=== PATIENT | male | born 1980 | race Caucasian/White ===

== ENCOUNTER 2024-12-28 15:47 | Inpatient (IN) | payer BC, SELFPAY ==
[2024-12-28] VITALS (9 sets, daily range): BP systolic 91–122; BP diastolic 57–74; BMI 29.7; BMI 30.3
[2024-12-28 11:43] LABS: Hematocrit 48.5 % (39.0-52.0); Hemoglobin 16.8 g/dL (13.0-18.0); Mean Corp Hgb Conc. 34.6 g/dL (33.0-37.0); Mean Corpuscular Volume 89.2 fL (80.0-94.0); Platelet Count 181 10^3/uL (130-400); Red Cell Dist. Width 12.7 % (11.5-14.5)
[2024-12-28 11:44] LABS: APTT 28.8 Sec (23.4-35.0); INR 0.91; PT 12.8 Sec (11.4-14.6)
[2024-12-28 11:54] LABS: ALT (SGPT) 26 U/L (0-50); AST (SGOT) 24 U/L (17-59); Albumin 4.8 g/dl (3.5-5.0); Alkaline Phosphatase 33 U/L (38-126); Blood Urea Nitrogen 20 mg/dl (9-20); Calcium 9.8 mg/dl (8.4-10.2); Carbon Dioxide 25 mmol/L (22-30); Chloride 106 mmol/L (98-107); Glucose 114 mg/dl (70-99); Potassium 4.0 mmol/L (3.5-5.1); Sodium 137 mmol/L (135-145); Total Protein 7.2 g/dl (6.3-8.2); eGFR > 60.00
[2024-12-28 11:58] LABS: Nucleated Red Blood Cells % 0 % (-)
[2024-12-28] MEDS: OMNIPAQUE 50 ML PO (12:09)
[2024-12-28] MEDS: ZOSYN 100 IV (12:19)
[2024-12-28] MEDS: TORADOL 15 MG IV (12:20)
--- NOTE | 2024-12-28 12:30 | EDRN ---
called pharmacy to verify Mandieo
--- NOTE | 2024-12-28 12:32 | ED.GENMED ---
History of Present Illness
General
Chief Complaint: Fever
Time Seen by Provider: 12/28/24 11:48
Nursing documentation reviewed up to this point in time: agreed with
History of Present Illness
History of Present Illness:
44-year-old male presents to the ER for evaluation of abrupt onset rigors and bodyaches at 1:00 this morning. Patient states that he had been feeling otherwise well. He did travel to [place] with his family recently but had no specific sick
contacts. No recent tick exposures. No recent antibiotic usage. Patient states that he felt nauseated and vomited once. He reports right sided abdominal pain and severe pain in his right groin. He had been seen at urgent care and was referred
immediately to the ER for further evaluation. I was able to speak to urgent care attending, Dr. Gibson, to receive report with regards for concern given overall patient appearance and hypotension. On arrival to the ER he notes a rash to his right
lower extremity. He states that yesterday he was easily able to play soccer with his son without any reported injury or trauma. He reports severe pain with movement diffusely throughout his body. He did not take any medications for his symptoms
prior to arrival
Phy Exam
Physical Exam
Physical Exam:
Patient is awake, alert, appears uncomfortable but in no acute distress, mucous membranes tacky, heart regular rate and rhythm without murmurs or ectopy, lungs are clear to auscultation without wheezes rales or rhonchi, abdomen is diffusely tender
with rebound and guarding along the right lower quadrant, exquisite pain on palpation right groin, with palpable lymphadenopathy, there is flame shaped blanching erythema present anterior right lower leg, moderate tenderness on palpation along
medial right lower leg, 2+ DP pulses present symmetric bilateral lower extremities with brisk cap refill to the toes, GCS is 15
Course
Orders/Labs/Results
Orders:
Orders
12/28/24 11:20
Complete Blood Count/With Diff Urgent
Comprehensive Metabolic Panel Urgent
Creatine Phosphokinase Urgent
Comment: ADD
Lactic Acid Urgent
Comment: ORDERED [place] [id number]
PTT Urgent
Prothrombin Time Urgent
12/28/24 11:48
CT Abd/pel W Iv And Oral Contr Urgent
Comment:
Reason For Exam: rlq pain r/o appy
Iohexol [Omnipaque] See Protocol PO NOW STA
12/28/24 11:54
0.9% Sodium Chloride 500 ml [Nss] 500 ml IV BOLUS
12/28/24 12:00
CT Lower Ext W/iv Cont Rt Urgent
Comment:
Reason For Exam: muscle pain, fever
12/28/24 12:01
Piperacillin/Tazo 4.5 Gram [Zosyn] 4.5 gram in 100 ml IV NOW
12/28/24 12:02
Vancomycin [Vancocin] 2,000 mg 0.9% Sodium Chloride 500 ml [Nss] 500 ml IV NOW
12/28/24 12:03
Ketorolac [Toradol] 15 mg IV NOW STA
12/28/24 12:54
Add On- LAB Urgent
Tests Added?: Total CK
12/28/24 13:18
HYDROmorphone [Dilaudid] 1 mg IV NOW STA
12/28/24 14:21
Consult Surgery [SURGICAL CONSULT] Urgent
Consulting Provider: Fercho Cueva
Was physician already notified: Yes
Reason for consult: severe pain, cellulitis
12/28/24 15:00
Blood Culture Q30M
TONY Source: Blood/Venous
Specimen Description:
12/28/24 15:01
Ehrlichia/Anaplasma by PCR [S] Urgent
Lyme Progressive Urgent
Babesia Smear [Blood Parasites] Urgent
TONY Source: Blood/Venous
Specimen Description:
12/28/24 15:04
Lumbar W/O & With Contrast MR [MR Lumbar W/o & With Contrast] Routine
Comment:
Reason For Exam: sepsis thoracic lumbar back pain
OK for patient to be off Cardiac Monitoring for MRI: Yes
Recent pill cam endoscopy?: No
Pacemaker/Defibrillator?: No
Thoracic Spine W/O & With [MR Thoracic Spine W/o & With] Routine
Comment:
Reason For Exam: sepsis thoracic lumbar back pain
OK for patient to be off Cardiac Monitoring for MRI: Yes
Recent pill cam endoscopy?: No
Pacemaker/Defibrillator?: No
12/28/24 15:06
CefTRIAXone [Rocephin] 1,000 mg IV NOW STA
12/28/24 15:30
Blood Culture Q30M
TONY Source: Blood/Venous
Specimen Description:
Abnormal Lab Results
12/28/24
11:20
WBC 23.0 H 10^3/uL
(4.8-10.8)
Abs Immat Gran (auto) 0.2 H 10^3/uL
(0-0.05)
Absolute Neuts (auto) 20.8 H 10^3/uL
(1.4-6.5)
Absolute Lymphs (auto) 0.6 L 10^3/uL
(1.2-3.4)
Absolute Monos (auto) 1.4 H 10^3/uL
(0.1-0.6)
Immature Gran % 0.9 H %
(0-0.5)
Neutrophils % 90.2 H %
(42.2-75.2)
Lymphocytes % 2.7 L %
(20.5-51.1)
Glucose 114 H mg/dl
(70-99)
Alkaline Phosphatase 33 L U/L
(38-126)
12/28/24 11:20
12/28/24 11:20
White blood count elevated at 23,000 with left shift, kidney function preserved. Lactate reassuring
Vital Signs
Initial and Last Documented VS:
Initial Vital Signs
Temp Pulse Resp BP Pulse Ox
98.3 F 75 16 91/58 95
12/28/24 11:04 12/28/24 11:04 12/28/24 11:04 12/28/24 11:04 12/28/24 11:04
Last Documented Vital Signs
Temp Pulse Resp BP Pulse Ox
98.3 F 74 14 102/64 93
12/28/24 11:04 12/28/24 14:15 12/28/24 14:15 12/28/24 14:00 12/28/24 14:15
MDM/Problems Addressed
Differential Diagnosis Includes:
Differential diagnosis to consider but not limited to necrotizing fasciitis, ruptured appendicitis, bacteremia, sepsis along with other etiologies considered
Comment
Comment:
After my examination of the patient, I reached out to on-call surgeon, Dr. Simon, to discuss my concern for necrotizing fasciitis given extreme pain on palpation of the right lower extremity and right groin. He will see patient in consultation
pending imaging as planned.
*Radiology
Radiology exam reviewed: preliminary read by ED provider (I independently viewed and interpreted CT of the abdomen and right lower extremity showing subcutaneous stranding in the right groin, I do not see overt evidence for bowel rupture or
myositis. Awaiting formal radiology interpretation) and radiology read reviewed
*Pulse Oximetry
SaO2: 95
Oxygen Mode of Delivery: Room air
Patient hypoxic: no
*Critical Care Note
Total Time (30-74mins, 75-104mins- exclusive of procedures): Not Applicable
Update Note
Update Note:
Patient with minimal change in pain with Toradol administration. IV Dilaudid ordered. 2 L IV fluids also ordered. Blood pressure stable.
update-patient resting comfortably after Dilaudid. I reviewed CT with on-call surgeon, would feel patient could be admitted to hospitalist and they will see in consultation. I reviewed full patient presentation with hospitalist who accepts patient
for admission for further treatment of severe pain out of proportion associated with cellulitis
ED Attending Note
-
Portions of this chart may have been created with voice recognition software.� Occasional wrong word or��sound alike� substitutions may have occurred due to the inherent limitations of voice recognition software.
Discharge Plan
Departure
Patient Disposition: Admit
Date of Disposition: 12/28/24
Time of Disposition: 14:25
Presentation/result/management discussed w/ accepting MD/DO: Hospitalist
Discharge Problem:
Cellulitis, Severe inguinal pain
Prescriptions:
No Action
No Current Medications
0
Referrals:
Ashish Franklin DO [Family Provider, Family Practice]
Interventions
Interventions:
*Risk Screen - Suicide Last Done: 12/28/24 12:01
*General Assessment Last Done: 12/28/24 12:01
*Neglect/Abuse Screening Last Done: 12/28/24 12:01
*ED- Fall Risk Assessment Last Done: 12/28/24 12:01
*ED COVID-19 Vaccine History Last Done: 12/28/24 12:01
ED- Neurological Assessment Last Done: 12/28/24 12:01
ED-Skin Assessment Last Done: 12/28/24 12:01
Discharge Date and Time
Print Language: BELGIAN
[2024-12-28] MEDS: NSS 500 IV (13:16)
[2024-12-28] MEDS: VANCOCIN 540 MG IV (13:16)
[2024-12-28] MEDS: DILAUDID 1 MG IV (13:27)
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
--- NOTE | 2024-12-28 15:04 | CON.GS ---
Consultation
-
Date/Time Consultation Performed: 12/24/2024 1420
Requesting Provider: Hammad
Performing Provider: Maxim
Reason for Consultation: Possible soft tissue infection
Medical History
-
Chief Complaint: Fevers, rigors and body ache
History of Present Illness:
Patient is a 44-year-old male who is in his usual baseline state of health until this past evening. His is at bedside and reports that she woke in the middle the night with her having rigors in bed next to her sleeping. He
subsequently woke up with a fever and chills and noted diffuse bodyaches. As time proceeded into the morning he began to have increasing discomfort in the right inguinal area and slightly more in the right calf region than other extremities. He
also complains of lower back pain. He was subsequently referred to the emergency department from urgent care for further evaluation.
Patient is not aware of any recent sick contacts. He recently traveled to [place]. He is not aware of any tick or other outdoor exposures. No similar episodes like this in the past.
Past Medical History
Past Medical History: None
Past Surgical History: None
Social History
Personal:
Living: With Family
Family History
Family History: Reviewed & Not Pertinent
Allergies / Home Medications
Allergy/AdvReac Type Severity Reaction Status Date / Time
No Known Allergies Allergy Verified 12/28/24 11:03
�Medication �Instructions �Recorded �Confirmed �Type
No Meds [No Current Medications] 12/28/24 12/28/24 History
Review of Systems
-
History Source: Patient and Family
A 10 point review of systems was completed, and was negative except as per HPI.
Physical Exam
Vital Signs
Temp Pulse Resp BP Pulse Ox
98.3 F 74 14 102/64 93
12/28/24 11:04 12/28/24 14:15 12/28/24 14:15 12/28/24 14:00 12/28/24 14:15
12/27/24 12/28/24 12/29/24
06:59 06:59 06:59
Actual Weight 102.1 kg
Body Mass Index (BMI) 29.7
Lab Results
12/28/24 11:20
12/28/24 11:20
WBC 23.0 10^3/uL (4.8-10.8) H 12/28/24 11:20
Hgb 16.8 g/dL (13.0-18.0) 12/28/24 11:20
Hct 48.5 % (39.0-52.0) 12/28/24 11:20
Plt Count 181 10^3/uL (130-400) 12/28/24 11:20
Abs Immat Gran (auto) 0.2 10^3/uL (0-0.05) H 12/28/24 11:20
Neutrophils % 90.2 % (42.2-75.2) H 12/28/24 11:20
Physical Exam
General: Well Developed, Well Nourished, No Apparent Distress (But acutely ill) and Comfortable
HEENT: Normocephalic, Anicteric and Moist Mucous Membranes
Respiratory: Non Labored Respirations
Cardiac: Regular Rhythm
GI: Soft, Non Tender and Non Distended
Skin: Other (Faint erythematous rash along the right pretibial area of the lower extremity.)
Neuro: AO x 3 and Nonfocal/Grossly Intact
Hematologic/Lymphatic: Lymphadenopathy (Right groin without overlying erythema)
Data Reviewed
-
CT Scan: Image Personally Visualized and interpreted, Report Reviewed by me, Discussed with Patient and Discussed with Family
Assessment / Plan
-
Assessment/plan: 44-year-old male presenting with fever, rigors, diffuse bodyaches, lower back pain, headache and a faint rash along the right pretibial area as well as right groin lymphadenopathy.
Emergency department consultation requested out of concern for possible soft tissue infection. Based on physical examination and CT imaging there does not appear to be any deep/underlying soft tissue infection such as myositis, necrotizing
fasciitis or undrained abscess. Very faint rash like erythema along the right anterior tibial region which does not appear to be too cellulitic either.
There does not appear to be any infectious soft tissue process to warrant surgical intervention. Suspect more generalized infectious process occurring.
Hospitalist team currently evaluating patient.
Signing off.
Please call if I can be of further assistance with the patient's care.
--- NOTE | 2024-12-28 15:14 | W.PN.UPDATE ---
Update Note
Progress Note Update
This is an addendum to H&P written by Krysten Waddell on 12/24/2024. �Patient seen and examined independently with CHARGE MANAGER.
44-year-old male without medical history presenting with 1 day of severe body aches including lower right back and right groin with radiation to the legs, chills, retro-orbital headache behind the right eye with some light sensitivity and nausea.
Also discomfort of the right lower leg with red discoloration.
Labs show leukocytosis 23.
Patient has erythematous discoloration of the right lower extremity without evidence of acute cellulitis.
CT scan of the right lower extremity and CT abdomen pelvis shows right groin enhancing lymph nodes.
Concern for Lyme's disease versus other tickborne illness although right lower extremity cellulitis could cause enhancing lymph nodes in the right groin.. Also considering differential such as meningitis versus lumbar spinal abscess.
Check Lyme screen, ehrlichiosis antibody, Babesia smear, blood cultures. Check MRI lumbar spine. Empiric vancomycin/ceftriaxone.
Alcohol withdrawal protocol for excessive alcohol use.
Was seen by surgery for concern for necrotizing fasciitis although presentation not consistent with such at all.
[2024-12-28] MEDS: STERILE WATER FOR INJECTION 10 ML IV (16:06)
[2024-12-28] MEDS: ROCEPHIN 1000 MG IV (16:06)
[2024-12-28] MEDS: TYLENOL 650 MG PO (17:12)
--- NOTE | 2024-12-28 19:05 | PHA.VAN.IN ---
Assessment
- Assessment
Renal Function: Unknown baseline
Concomitant Antimicrobials: ROCEPHIN
- Previous Dosing Experience
Previous Regimen: NONE
AUC Dosing Plan
- Dosing Variables
Dosing Weight (kg): 104
Dosing CrCl (ml/min): 100
Vd coefficient (L/kg): 0.7
- Empiric Dosing
Initial / Loading Dose: 2GM
Maintenance Regimen: 1500MG IV Q12H
Estimated AUC (mcg*h/mL): 502
Estimated Peak (mcg*h/mL): 31.7
Estimated Trough (mcg/ml): 12.7
Estimated Half Life (H): 7.9
Pharmacokinetics Vancomycin I
- -
Patient Age: 44
Patient Sex: Male
Vancomycin Day #: 1
Indication: Other (THORACIC/LUMBAR ABSCESS)
Requesting Provider: SHAUNA
Height / Weight:
Height 6 ft 1 in
Actual Weight 103.986 kg
- Vital Signs / Lab Results
Temp Pulse Resp BP Pulse Ox
100.5 F H 98 18 114/74 97
12/28/24 18:40 12/28/24 18:40 12/28/24 18:40 12/28/24 18:40 12/28/24 18:40
Lab Results - Hematology
12/28/24
11:20
WBC 23.0 H
Lab Results - Chemistry
12/28/24
11:20
BUN 20
Creatinine 1.1
Albumin 4.8
12/28/24
11:20
Lactic Acid 0.9
[2024-12-28] MEDS: DILAUDID 0.5 MG IV (19:48)
[2024-12-28 20:35] LABS: Urine Character Clear (Clear)
[2024-12-28] MEDS: THIAMINE INJECTION 200 MG IV (20:38)
[2024-12-28] MEDS: NSS 1000 IV (20:39)
[2024-12-28] MEDS: HEPARIN 5000 UNITS SC (20:39)
[2024-12-28 20:42] LABS: INR 1.14; PT 15.1 Sec (11.4-14.6)
[2024-12-28 20:43] LABS: APTT 34.8 Sec (23.4-35.0)
[2024-12-28 20:51] LABS: GGTP 29 U/L (15-73); Magnesium 1.7 mg/dl (1.6-2.3)
[2024-12-28 20:53] LABS: Urine White Cell 0-2 /HPF (0-5)
[2024-12-29] MEDS: TYLENOL 650 MG PO ×3 (02:40→22:51)
[2024-12-29 03:00] VITALS: BP 114/65
[2024-12-29] MEDS: VANCOCIN 530 MG IV (06:02)
[2024-12-29 06:42] LABS: Hematocrit 40.5 % (39.0-52.0); Hemoglobin 13.7 g/dL (13.0-18.0); Mean Corp Hgb Conc. 33.8 g/dL (33.0-37.0); Mean Corpuscular Volume 91.8 fL (80.0-94.0); Nucleated Red Blood Cells % 0 % (-); Platelet Count 146 10^3/uL (130-400); Red Cell Dist. Width 12.7 % (11.5-14.5)
[2024-12-29 06:55] LABS: ALT (SGPT) 24 U/L (0-50); AST (SGOT) 25 U/L (17-59); Albumin 3.2 g/dl (3.5-5.0); Alkaline Phosphatase 27 U/L (38-126); Blood Urea Nitrogen 18 mg/dl (9-20); Calcium 8.5 mg/dl (8.4-10.2); Carbon Dioxide 24 mmol/L (22-30); Chloride 108 mmol/L (98-107); Estimated Creatinine Clearance 121 ml/min; Glucose 97 mg/dl (70-99); Magnesium 1.9 mg/dl (1.6-2.3); Potassium 4.3 mmol/L (3.5-5.1); Sodium 134 mmol/L (135-145); Total Protein 5.3 g/dl (6.3-8.2); eGFR > 60.00
[2024-12-29 07:30] VITALS: BP 92/65
[2024-12-29] MEDS: FOLVITE 1 MG PO (07:52)
[2024-12-29] MEDS: HEPARIN 5000 UNITS SC ×2 (07:52→22:50)
[2024-12-29] MEDS: THIAMINE INJECTION 200 MG IV ×2 (07:52→22:49)
--- NOTE | 2024-12-29 08:35 | PHA.VAN.FU ---
Vancomycin Assessment / Plan
- Assessment
Renal Function: SCR Decreasing
WBC's are: Trending Down
In the past 24 hrs, patient has been: Febrile
Concomitant Antimicrobials: ceftriaxone
- Dosing Plan
Adjust Regimen to: Vanc 1750mg Q12H starting at 1800
New Regimen Predicts: AUC (507), Peak (33.6), Trough (11.8)
- Monitoring Plan
No level(s) ordered at this time: consider levels in next few days
MRSA Screen: Ordered per protocol
- Follow Up
Pharmacy will continue to follow.
Vancomycin Follow UP
- -
Patient Age: 44
Patient Sex: Male
Vancomycin Day #: 2
Indication: Other
Requesting Provider: Jhony Waddell
Pertinent Antimicrobial Allergies:
NKDA
Height / Weight:
Height 6 ft 1 in
Actual Weight 103.986 kg
Pertinent Past Medical History: BMI ~30
- Vital Signs / Lab Results
Temp Pulse Resp BP Pulse Ox
100.3 F 80 16 92/65 96
12/29/24 07:30 12/29/24 07:30 12/29/24 07:30 12/29/24 07:30 12/29/24 07:30
Lab Results - Hematology
12/28/24 12/29/24
11:20 06:11
WBC 23.0 H 17.4 H
Lab Results - Chemistry
12/28/24 12/29/24
11:20 06:11
BUN 20 18
Creatinine 1.1 1.0
Estimated Creat Clear 121
Albumin 4.8 3.2 L D
12/28/24
11:20
Lactic Acid 0.9
Lab Results - Urine
12/28/24
20:24
Urine Nitrite Negative
Ur Leukocyte Esterase 1+ A
Urine WBC 0-2
Ur Squamous Epith Cells 6-10
Urine Bacteria Few A
Microbiology Results
12/28/24 20:21 Blood Parasites Smear - Preliminary
Blood/Venous
--- NOTE | 2024-12-29 09:17 | W.PN.HOSP.TC ---
Today's Communication/Plan
-
see plan
Assessment / Plan
Assessment / Plan
Gen: NAD, AAOx3.
Eyes: EOMI, PERRLA, no scleral icterus.
Neck: supple.
CV: RRR, +S1/S2, no m/r/g.
Resp: CTAB, no rales, wheezes, or rhonchi.
Abd: +BS, soft, NT, ND
Skin: No rashes.
MSK: Lumbar spine without bony deformity or tenderness to palpation, Lumbar paraspinal muscles are tender to palpation.
Neuro: CN 2-12 intact, non-focal.
Psych: Normal mood and affect.
CT A/P: Several subcentimeter enhancing right groin lymph nodes with surrounding stranding suggesting recent infection, procedure or malignancy in or near this region. Clinical and laboratory correlation recommended.. Too small for PET imaging.
Mild prostate hypertrophy. Bilateral simple renal cysts.
CT RLE: Subcentimeter right groin enhancing lymph nodes with associated inflammation suggesting recent procedure, infection or malignancy. Clinical and laboratory correlation recommended.
SIRS:
-with back pain concern for thoracic/lumbar abscess
-leukocytosis improving
-IV Vanco/Zosyn given in ER
-cont Rocephin/Vanco
-follow BCxs, parasite smear, tickborne illness serologies (Lyme, ehrlichiosis, Anaplasma)
-check MRI T/L spine
-c/s ID
Other problems:
Alcohol abuse disorder: MSAS protocol (thiamine/folate/Ativan PRN)
Tobacco abuse disorder: Encourage smoking cessation
Obesity due to excess calories
Pt's updated at bedside.
FULL/heparin
Anticipated Discharge: 24 - 48 hours
Subjective/Interval History
-
Date of Service: December 29, 2024
No new complaints.
Objective Data
-
Labs:
Laboratory Results
12/29/24
06:11
WBC 17.4 H
Hgb 13.7
Hct 40.5
Plt Count 146
Sodium 134 L
Potassium 4.3
Chloride 108 H
Carbon Dioxide 24
BUN 18
Creatinine 1.0
Glucose 97
Calcium 8.5
Total Bilirubin 0.6
AST 25
ALT 24
Alkaline Phosphatase 27 L
Vital Signs:
Vital Signs
Temp Pulse Resp BP Pulse Ox
100.3 F 80 16 92/65 96
12/29/24 07:30 12/29/24 07:30 12/29/24 07:30 12/29/24 07:30 12/29/24 07:30
I&O
12/28/24 12/29/24 12/30/24
06:59 06:59 06:59
Intake Total 1560 / 1560
Balance 1560 / 1560
[2024-12-29] MEDS: NSS 1000 IV ×3 (10:06→22:55)
[2024-12-29 11:50] VITALS: BP 105/69
--- NOTE | 2024-12-29 12:45 | CM ---
Patient seen at bedside with
IA completed
CM consult completed - substance abuse - declines BCARES
Lives with in a 2 story home, 2 steps to enter, flight stairs bed/bathroom
PLOF: Independent
Denies DME
Denies VN/Rehab
Denies insecurities
PCP: Ashish Franklin
Pharmacy: [facility], [place]
PLAN: Home, no needs anticipated when stable
[2024-12-29 15:30] VITALS: BP 113/69
--- NOTE | 2024-12-29 16:21 | CON.ID ---
Consultation
-
Date/Time Consultation Requested: 12/29/2024 0919
Date/Time Consultation Performed: 12/29/2024 1543
Requesting Provider: Dr. Katz
Performing Provider: Dr. Jones
Reason for Consultation: Leukocytosis
Chief Complaint / Past History
History of Present Illness
Eddie Huggins is a 44-year-old man being evaluated at the request of Dr. Katz in regards to leukocytosis and fevers. History is obtained from chart review, along with patient interview.
The patient has no significant past medical history, and was in his usual state of health until 2 days ago when he recalls waking up approximate 1 AM with rigors and fever to 102. He recalls that he had the shakes for the next 5 to 6 hours.
Additionally had a headache and later, an achy back. He does admit to general myalgias the next morning. He went to a local urgent care center, and he was sent to the ER. He presented to the ER yesterday around 11 AM. Workup in the ER revealed
leukocytosis. The patient was started on empiric antibiotics. Later in the day he continued to have spiking temperatures.
In the ER he recalls seeing his right leg had developed erythema, and he had tenderness along his medial thigh, and tenderness in the groin area with some swelling.
At this point in time he reports feeling somewhat improved, although he still has significant tenderness in the distal right leg.
He denies any tick exposure. He has been bitten by mosquitoes. 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 He does not have a lot of outdoor exposure. He has 1 pet hamster.
No recent travel.
Past History
Past Medical History: None
Past Surgical History: Orthopedic (Right ankle surgery)
Allergy History:
No Known Allergies Allergy (Verified 12/28/24 11:03)
Medications Reviewed: Yes
Current Antibiotics:
Ceftriaxone
Vancomycin
Social History
Tobacco: Smoker (Social)
Alcohol: Occasional
Drug: None
Personal:
Living: With Family
Employment: Employed
Family History
Family History: Not Pertinent
Review of Systems
Vital Signs
Temp Pulse Resp BP Pulse Ox
98.6 F 73 16 113/69 99
12/29/24 15:30 12/29/24 15:30 12/29/24 15:30 12/29/24 15:30 12/29/24 15:30
Physical Exam
Physical Exam
Constitutional: No Acute Distress, Comfortable and Non-toxic
Eyes: No Conjunctival Hemorrhage and Sclera Anicteric
Oral: No Thrush and No Ulcers
Cardiovascular: Regular Rate and S1/S2; Negative S3/S4
Pulmonary: Clear; Negative Wheezes, Rales or Rhonchi
Gastrointestinal: Soft, Non Tender and Non Distended
Extremities: Edema (Right lower extremity distally) and Erythema (Right lower extremity distally, including ankle area and distal tibia/calf area)
Musculoskeletal: Negative Joint Swelling or Joint Effusion
Skin: Warm and Dry
Wound: None
Neurological: Awake, Alert and Oriented
Psychological: Calm
.
Lab / Diagnostic Study Results
12/29/24 06:11
12/29/24 06:11
Abs Immat Gran (auto) 0.1 10^3/uL (0-0.05) H 12/29/24 06:11
Absolute Neuts (auto) 15.2 10^3/uL (1.4-6.5) H 12/29/24 06:11
Absolute Lymphs (auto) 1.5 10^3/uL (1.2-3.4) 12/29/24 06:11
Absolute Monos (auto) 0.5 10^3/uL (0.1-0.6) 12/29/24 06:11
Absolute Basos (auto) 0.0 10^3/uL (0-0.2) 12/29/24 06:11
Immature Gran % 0.5 % (0-0.5) 12/29/24 06:11
Neutrophils % 87.5 % (42.2-75.2) H 12/29/24 06:11
Lymphocytes % 8.6 % (20.5-51.1) L 12/29/24 06:11
Monocytes % 3.0 % (1.7-9.3) 12/29/24 06:11
Eosinophils % 0.2 % (0-6) 12/29/24 06:11
Basophils % 0.2 % (0-2) 12/29/24 06:11
PT 15.1 Sec (11.4-14.6) H 12/28/24 20:21
INR 1.14 12/28/24 20:21
Lactic Acid 0.9 mmol/L (0.7-2.0) 12/28/24 11:20
Urine WBC 0-2 /HPF (0-5) 12/28/24 20:24
Ur Squamous Epith Cells 6-10 /LPF (Few) 12/28/24 20:24
Microbiology Results
Micro:
12/28/24 20:21 Blood Parasites Smear - Final
Blood/Venous
12/29/24 12:41 MRSA Screen - Pending
Nose
12/28/24 21:16 Blood Culture - Pending
Blood/Venous
12/28/24 20:21 Blood Culture - Pending
Blood/Venous
Imaging:
12/28/2024 CT lower extremity with IV contrast: subcentimeter right groin enhancing lymph nodes with associated inflammation suggesting recent procedure, infection or malignancy. No abnormal masses or fluid collections noted. Vasculature is grossly
unremarkable. Please see full dictation for additional detail.
04/30/2025 CT abdomen/pelvis with contrast: several subcentimeter enhancing right groin lymph nodes with surrounding stranding suggesting recent infection, procedure malignancy. Clinical correlation recommended. Mild prostate hypertrophy.
Bilateral simple renal cysts needed. Please see full dictation for additional detail.
Assessment / Plan
Right lower extremity cellulitis; suspect either Staphylococcus or Streptococcus
Lymphangitis
Suspected reactive right inguinal lymph nodes.
Leukocytosis
Fevers
Recommendations:
Continue with vancomycin.
Transition ceftriaxone to cefazolin 2 gm IV q.8 hours.
Monitor white count and temperature curve.
Follow pending cultures
Further recommendations as additional data is returned.
[2024-12-29] MEDS: VANCOCIN 535 MG IV (17:43)
[2024-12-29] MEDS: ANCEF 10 IV (17:51)
[2024-12-29 19:10] VITALS: BP 136/84
[2024-12-29] MEDS: FLUSH (NSS) 2 FLUSH IV (22:51)
[2024-12-29 23:05] VITALS: BP 133/74
--- NOTE | 2024-12-29 23:21 | PTCARENOTE ---
Assumed care of patient from previous RN. Patient with no complaints at this time. MRI ordered -- patient able to go down first thing this shift to have MRI completed. Temp 100.7F oral prior to MRI. Upon return from MRI, temp 100.2F oral and slight
headache pain -- tylenol provided, see MAR. Patient also c/o 'throbbing' pain to right leg - redness appears slightly improved in some spots to hickman, other areas with slight increase in redness beyond marked borders. IVFs maintained. Call rodas in
reach, will monitor.
[2024-12-30] MEDS: ANCEF 10 IV ×3 (01:31→18:37)
[2024-12-30 03:23] VITALS: BP 116/66
[2024-12-30] MEDS: VANCOCIN 535 MG IV (05:55)
[2024-12-30 06:40] LABS: Hematocrit 38.9 % (39.0-52.0); Hemoglobin 13.3 g/dL (13.0-18.0); Mean Corp Hgb Conc. 34.2 g/dL (33.0-37.0); Mean Corpuscular Volume 91.1 fL (80.0-94.0); Nucleated Red Blood Cells % 0 % (-); Platelet Count 127 10^3/uL (130-400); Red Cell Dist. Width 12.7 % (11.5-14.5)
[2024-12-30 07:00] VITALS: BP 121/81
[2024-12-30 07:17] LABS: ALT (SGPT) 20 U/L (0-50); AST (SGOT) 21 U/L (17-59); Albumin 3.1 g/dl (3.5-5.0); Alkaline Phosphatase 29 U/L (38-126); Blood Urea Nitrogen 8 mg/dl (9-20); Calcium 8.0 mg/dl (8.4-10.2); Carbon Dioxide 22 mmol/L (22-30); Chloride 111 mmol/L (98-107); Estimated Creatinine Clearance > 125 ml/min; Glucose 93 mg/dl (70-99); Potassium 4.1 mmol/L (3.5-5.1); Sodium 137 mmol/L (135-145); Total Protein 5.1 g/dl (6.3-8.2); eGFR > 60.00
--- NOTE | 2024-12-30 08:51 | W.PN.HOSP.TC ---
Today's Communication/Plan
-
see plan
Assessment / Plan
Assessment / Plan
Gen: NAD, AAOx3.
Eyes: EOMI, PERRLA, no scleral icterus.
Neck: supple.
CV: remains RRR, +S1/S2, no m/r/g.
Resp: remains CTAB, no rales, wheezes, or rhonchi.
Abd: +BS, soft, NT, ND
Skin: RLE cellulitis
Neuro: CN 2-12 intact, non-focal.
Psych: Normal mood and affect.
12/28/24 21:16 Blood/Venous Blood Culture - Preliminary
No Growth in 24 hours- Final report to follow
12/28/24 20:21 Blood/Venous Blood Culture - Preliminary
No Growth in 24 hours- Final report to follow
12/28/24 20:21 Blood/Venous Blood Parasites Smear - Final
CT A/P: Several subcentimeter enhancing right groin lymph nodes with surrounding stranding suggesting recent infection, procedure or malignancy in or near this region. Clinical and laboratory correlation recommended.. Too small for PET imaging.
Mild prostate hypertrophy. Bilateral simple renal cysts.
CT RLE: Subcentimeter right groin enhancing lymph nodes with associated inflammation suggesting recent procedure, infection or malignancy. Clinical and laboratory correlation recommended.
MRI T/L spine: No MR evidence for thoracolumbar spine infection.
Sepsis due to RLE cellulitis (POA):
-leukocytosis has resolved
-IV Vanco/Zosyn given in ER
-cont Ancef/Vanco as per ID
-blood parasite smear NEG
-follow BCxs (NGTD), tickborne illness serologies (Lyme, ehrlichiosis, Anaplasma)
-MRI T/L spine NEG
Other problems:
Alcohol abuse disorder: MSAS protocol (thiamine/folate/Ativan PRN)
Tobacco abuse disorder: Encourage smoking cessation
Obesity due to excess calories
Pt's updated at bedside.
FULL/heparin
Anticipated Discharge: 24 - 48 hours
Subjective/Interval History
-
Date of Service: December 30, 2024
Overall patient feels improved. He reports pain in the right lower extremity.
Objective Data
-
Labs:
Laboratory Results
12/30/24
06:13
WBC 9.9
Hgb 13.3
Hct 38.9 L
Plt Count 127 L
Sodium 137
Potassium 4.1
Chloride 111 H
Carbon Dioxide 22
BUN 8 L
Creatinine 0.9
Glucose 93
Calcium 8.0 L
Total Bilirubin 0.4
AST 21
ALT 20
Alkaline Phosphatase 29 L
Vital Signs:
Vital Signs
Temp Pulse Resp BP Pulse Ox
98.2 F 59 16 121/81 95
12/30/24 07:00 12/30/24 07:00 12/30/24 07:00 12/30/24 07:00 12/30/24 07:00
I&O
12/29/24 12/30/24 12/31/24
06:59 06:59 06:59
Intake Total 1560 / 1560 3120 / 3120
Balance 1560 / 1560 3120 / 3120
[2024-12-30] MEDS: FOLVITE 1 MG PO (08:55)
[2024-12-30] MEDS: THIAMINE INJECTION 200 MG IV ×2 (08:56→21:02)
[2024-12-30] MEDS: HEPARIN 5000 UNITS SC ×2 (08:56→21:02)
[2024-12-30] MEDS: NSS 1000 IV ×2 (10:53→21:01)
[2024-12-30 11:00] VITALS: BP 116/70
--- NOTE | 2024-12-30 13:05 | W.PN.ID1 ---
Date of Service
Date of Service: December 30, 2024
Today's Communication
Continue antibiotics. See below�
Assessment / Plan
Right lower extremity cellulitis; suspect either Staphylococcus or Streptococcus
Lymphangitis
Suspected reactive right inguinal lymph nodes.
Leukocytosis
Fevers
Recommendations:
Improvement in leukocytosis and temperature curve noted.
Discontinue further vancomycin.
Continue cefazolin 2 gm IV q.8 hours.
Monitor white count and temperature curve.
Follow pending cultures
Lower extremity elevation.
����������������������������������������������������������
Chief Complaint
-: Cellulitis (RLE)
Subjective / Review of Systems
Patient seen and examined. Reports ongoing right lower extremity discomfort, especially when dependent. No fevers or chills.
Vital Signs / Physical Exam
Vital Signs
Vital Signs
Temp Pulse Resp BP Pulse Ox
98.5 F 61 18 116/70 95
12/30/24 11:00 12/30/24 11:00 12/30/24 11:00 12/30/24 11:00 12/30/24 11:00
Physical Exam
Constitutional: No Acute Distress, Comfortable and Non-toxic
Eyes: Sclera Anicteric
Pulmonary: Non Labored
Extremities: Edema (Right lower extremity), Erythema (Right lower extremity) and Other (Ongoing right lower extremity tenderness and warmth.)
Skin: Warm and Dry
Neurological: Awake and Alert
Psychological: Calm
Objective Data
Lab Data
Lab Results
12/30/24 06:13
12/30/24 06:13
PT 15.1 Sec (11.4-14.6) H 12/28/24 20:21
INR 1.14 12/28/24 20:21
APTT 34.8 Sec (23.4-35.0) 12/28/24 20:21
Estimated Creat Clear > 125 ml/min 12/30/24 06:13
Lactic Acid 0.9 mmol/L (0.7-2.0) 12/28/24 11:20
Total Bilirubin 0.4 mg/dl (0.2-1.3) 12/30/24 06:13
GGT 29 U/L (15-73) 12/28/24 20:21
AST 21 U/L (17-59) 12/30/24 06:13
ALT 20 U/L (0-50) 12/30/24 06:13
Alkaline Phosphatase 29 U/L (38-126) L 12/30/24 06:13
Most recent labs reviewed.
Micro Results:
12/28/24 21:16 Blood Culture - Preliminary
Blood/Venous No Growth in 24 hours- Final report to follow
12/28/24 20:21 Blood Culture - Preliminary
Blood/Venous No Growth in 24 hours- Final report to follow
12/28/24 20:21 Blood Parasites Smear - Final
Blood/Venous
12/29/24 12:41 MRSA Screen - Pending
Nose
Imaging:
12/28/2024 CT lower extremity with IV contrast: subcentimeter right groin enhancing lymph nodes with associated inflammation suggesting recent procedure, infection or malignancy. No abnormal masses or fluid collections noted. Vasculature is grossly
unremarkable. Please see full dictation for additional detail.
04/30/2025 CT abdomen/pelvis with contrast: several subcentimeter enhancing right groin lymph nodes with surrounding stranding suggesting recent infection, procedure malignancy. Clinical correlation recommended. Mild prostate hypertrophy.
Bilateral simple renal cysts needed. Please see full dictation for additional detail.
[2024-12-30] MEDS: DILAUDID 0.5 MG IV (14:32)
[2024-12-30 15:00] VITALS: BP 117/73
--- NOTE | 2024-12-30 15:40 | CM ---
Chart reviewed
continues on IV antibiotic
PLAN: home, no needs anticipated
--- NOTE | 2024-12-30 17:34 | PTCARENOTE ---
pt received PRN Dilaudid for c/o RLE pain with some relief. right lower leg with area of tenderness, warmth and erythema. redness hasn't decreased below line of demarcation yet. tolerating diet, independent, vss, will continue to monitor.
[2024-12-30 19:15] VITALS: BP 123/74
[2024-12-30] MEDS: ROXICODONE 5 MG PO (21:01)
--- NOTE | 2024-12-30 21:30 | PTCARENOTE ---
Approached by after rounding on patient - is concerned that patient is internally worried about losing his leg and it is causing him to have issues sleeping and wanting to take pain medication for the pain in right leg. Assessed RLE
cellulitis, tonight area appears to be worse in terms of redness and warmth. Patient is stating at this time he is having difficulty ambulating on right leg d/t significant pain and throbbing, is having to 'hobble' to the bathroom when needing to
go. Patient also brings concern to right groin as he states the area of redness is increasing in size, also warm to touch. Area marked to groin to evaluate changes in redness, and remarked to RLE cellulitic region as redness has spread beyond
original markings. IVFs maintained. ABX maintained with recent changes per MD today. Patient is c/o 4/10 pain at rest, and higher when OOB and leg is dependent. Provided PRN oxy -- see MAR. Notified KEREN Barrios -- able to come assess patient at
bedside. Awaiting further instruction, if any, at this time. Will monitor.
[2024-12-30 23:05] VITALS: BP 145/79
[2024-12-31] MEDS: ANCEF 10 IV ×3 (02:45→18:06)
[2024-12-31 07:10] LABS: ALT (SGPT) 19 U/L (0-50); AST (SGOT) 17 U/L (17-59); Albumin 3.3 g/dl (3.5-5.0); Alkaline Phosphatase 32 U/L (38-126); Blood Urea Nitrogen 7 mg/dl (9-20); Calcium 8.9 mg/dl (8.4-10.2); Carbon Dioxide 27 mmol/L (22-30); Chloride 109 mmol/L (98-107); Estimated Creatinine Clearance 121 ml/min; Glucose 101 mg/dl (70-99); Potassium 4.7 mmol/L (3.5-5.1); Sodium 139 mmol/L (135-145); Total Protein 5.5 g/dl (6.3-8.2); eGFR > 60.00
[2024-12-31 07:15] VITALS: BP 121/78
[2024-12-31 07:45] LABS: Hematocrit 39.3 % (39.0-52.0); Hemoglobin 13.1 g/dL (13.0-18.0); Mean Corp Hgb Conc. 33.3 g/dL (33.0-37.0); Mean Corpuscular Volume 92.7 fL (80.0-94.0); Nucleated Red Blood Cells % 0 % (-); Platelet Count 140 10^3/uL (130-400); Red Cell Dist. Width 13.1 % (11.5-14.5)
--- NOTE | 2024-12-31 08:08 | W.PN.HOSP.TC ---
Today's Communication/Plan
-
see plan
Assessment / Plan
Assessment / Plan
Gen: NAD, AAOx3.
Eyes: EOMI, PERRLA, no scleral icterus.
Neck: supple.
CV: remains RRR, +S1/S2, no m/r/g.
Resp: remains CTAB, no rales, wheezes, or rhonchi.
Abd: +BS, soft, NT, ND
Skin: R groin and leg cellulitis
Neuro: CN 2-12 intact, non-focal.
Psych: Normal mood and affect.
12/28/24 21:16 Blood/Venous Blood Culture - Preliminary
No Growth in 48 hours- Final report to follow
12/28/24 20:21 Blood/Venous Blood Culture - Preliminary
No Growth in 48 hours- Final report to follow
12/29/24 12:41 Nose MRSA Screen - Final
No Methicillin Resistant Staphylococcus aureus isolated.
12/28/24 20:21 Blood/Venous Blood Parasites Smear - Final
CT A/P: Several subcentimeter enhancing right groin lymph nodes with surrounding stranding suggesting recent infection, procedure or malignancy in or near this region. Clinical and laboratory correlation recommended.. Too small for PET imaging.
Mild prostate hypertrophy. Bilateral simple renal cysts.
CT RLE: Subcentimeter right groin enhancing lymph nodes with associated inflammation suggesting recent procedure, infection or malignancy. Clinical and laboratory correlation recommended.
MRI T/L spine: No MR evidence for thoracolumbar spine infection.
Sepsis due to RLE cellulitis (POA):
-leukocytosis has resolved
-IV Vanco/Zosyn given in ER
-cont Ancef only (now off Vanco) as per ID
-blood parasite smear NEG
-follow BCxs (NGTD), tickborne illness serologies (Lyme, ehrlichiosis, Anaplasma)
-MRI T/L spine NEG
Other problems:
Alcohol abuse disorder: MSAS protocol (thiamine/folate/Ativan PRN)
Tobacco abuse disorder: Encourage smoking cessation
Obesity due to excess calories
FULL/heparin
Anticipated Discharge: 24 - 48 hours
Subjective/Interval History
-
Date of Service: December 31, 2024
c/o pain in R leg
Objective Data
-
Labs:
Laboratory Results
12/31/24
06:26
WBC 6.9
Hgb 13.1
Hct 39.3
Plt Count 140
Sodium 139
Potassium 4.7
Chloride 109 H
Carbon Dioxide 27
BUN 7 L
Creatinine 1.0
Glucose 101 H
Calcium 8.9
Total Bilirubin 0.4
AST 17
ALT 19
Alkaline Phosphatase 32 L
Vital Signs:
Vital Signs
Temp Pulse Resp BP Pulse Ox
97.8 F 61 16 121/78 97
12/31/24 07:15 12/31/24 07:15 12/31/24 07:15 12/31/24 07:15 12/31/24 07:15
I&O
12/30/24 12/31/24 01/01/25
06:59 06:59 06:59
Intake Total 3120 / 3120 2500 / 2500
Balance 3120 / 3120 2500 / 2500
[2024-12-31] MEDS: HEPARIN 5000 UNITS SC ×2 (08:17→20:53)
[2024-12-31] MEDS: FOLVITE 1 MG PO (08:18)
[2024-12-31] MEDS: THIAMINE INJECTION 200 MG IV (08:18)
[2024-12-31] MEDS: NSS 1000 IV (08:24)
--- NOTE | 2024-12-31 11:15 | W.PN.ID1 ---
Date of Service
Date of Service: December 31, 2024
Today's Communication
Continue antibiotics
Assessment / Plan
Right lower extremity cellulitis; suspect either Staphylococcus or Streptococcus
Lymphangitis
Suspected reactive right inguinal lymph nodes.
Leukocytosis
Fevers
Recommendations:
Improvement in leukocytosis and temperature curve noted.
Continue cefazolin 2 gm IV q.8 hours.
Monitor white count and temperature curve.
Follow pending cultures
Lower extremity elevation. I have applied an Ford wrap to the right lower extremity also.
Possible transition to oral Keflex in the next 24 to 48 hours.
����������������������������������������������������������
Chief Complaint
-: Cellulitis (RLE)
Subjective / Review of Systems
Patient reports ongoing right leg discomfort, although notes that some of the redness has improved.
Vital Signs / Physical Exam
Vital Signs
Vital Signs
Temp Pulse Resp BP Pulse Ox
97.8 F 61 16 121/78 97
12/31/24 07:15 12/31/24 07:15 12/31/24 07:15 12/31/24 07:15 12/31/24 07:15
Physical Exam
Constitutional: No Acute Distress, Comfortable and Non-toxic
Eyes: Sclera Anicteric
Pulmonary: Non Labored
Extremities: Edema (Right lower extremity), Erythema (Right lower extremity) and Other (Ongoing right lower extremity tenderness and warmth.)
Skin: Warm and Dry
Neurological: Awake and Alert
Psychological: Calm
Objective Data
Lab Data
Lab Results
12/31/24 06:26
12/31/24 06:26
PT 15.1 Sec (11.4-14.6) H 12/28/24 20:21
INR 1.14 12/28/24 20:21
APTT 34.8 Sec (23.4-35.0) 07/24/25 20:21
Estimated Creat Clear 121 ml/min 12/31/24 06:26
Lactic Acid 0.9 mmol/L (0.7-2.0) 12/28/24 11:20
Total Bilirubin 0.4 mg/dl (0.2-1.3) 12/31/24 06:26
GGT 29 U/L (15-73) 12/28/24 20:21
AST 17 U/L (17-59) 12/31/24 06:26
ALT 19 U/L (0-50) 12/31/24 06:26
Alkaline Phosphatase 32 U/L (38-126) L 12/31/24 06:26
Most recent labs reviewed.
Micro Results:
12/28/24 21:16 Blood Culture - Preliminary
Blood/Venous No Growth in 48 hours- Final report to follow
12/28/24 20:21 Blood Culture - Preliminary
Blood/Venous No Growth in 48 hours- Final report to follow
12/29/24 12:41 MRSA Screen - Final
Nose No Methicillin Resistant Staphylococcus aureus isolated.
12/28/24 20:21 Blood Parasites Smear - Final
Blood/Venous
Imaging:
12/28/2024 CT lower extremity with IV contrast: subcentimeter right groin enhancing lymph nodes with associated inflammation suggesting recent procedure, infection or malignancy. No abnormal masses or fluid collections noted. Vasculature is grossly
unremarkable. Please see full dictation for additional detail.
04/30/2025 CT abdomen/pelvis with contrast: several subcentimeter enhancing right groin lymph nodes with surrounding stranding suggesting recent infection, procedure malignancy. Clinical correlation recommended. Mild prostate hypertrophy.
Bilateral simple renal cysts needed. Please see full dictation for additional detail.
Care Review
Plan reviewed with: Physician (Hospitalist)
--- NOTE | 2024-12-31 11:34 | CM ---
Patient seen at beside
Cont on IV antibiotic
PLAN: Home, no needs anticipated, when stable
[2024-12-31 14:59] VITALS: BP 143/86
[2024-12-31] MEDS: VITAMIN B1 100 MG PO (20:53)
[2024-12-31 23:00] VITALS: BP 125/80
[2025-01-01] MEDS: ANCEF 10 IV ×2 (02:16→10:16)
[2025-01-01 06:24] LABS: Hematocrit 41.4 % (39.0-52.0); Hemoglobin 14.0 g/dL (13.0-18.0); Mean Corp Hgb Conc. 33.8 g/dL (33.0-37.0); Mean Corpuscular Volume 89.4 fL (80.0-94.0); Nucleated Red Blood Cells % 0 % (-); Platelet Count 175 10^3/uL (130-400); Red Cell Dist. Width 12.7 % (11.5-14.5)
[2025-01-01 06:43] LABS: ALT (SGPT) 25 U/L (0-50); AST (SGOT) 24 U/L (17-59); Albumin 3.6 g/dl (3.5-5.0); Alkaline Phosphatase 31 U/L (38-126); Blood Urea Nitrogen 9 mg/dl (9-20); Calcium 9.2 mg/dl (8.4-10.2); Carbon Dioxide 25 mmol/L (22-30); Chloride 108 mmol/L (98-107); Estimated Creatinine Clearance > 125 ml/min; Glucose 105 mg/dl (70-99); Potassium 4.3 mmol/L (3.5-5.1); Sodium 137 mmol/L (135-145); Total Protein 5.8 g/dl (6.3-8.2); eGFR > 60.00
[2025-01-01 07:13] VITALS: BP 113/71
[2025-01-01] MEDS: VITAMIN B1 100 MG PO (07:55)
[2025-01-01] MEDS: HEPARIN 5000 UNITS SC (07:55)
[2025-01-01] MEDS: FOLVITE 1 MG PO (07:55)
--- NOTE | 2025-01-01 08:19 | W.PN.HOSP.TC ---
Today's Communication/Plan
-
Discharge today
Assessment / Plan
Assessment / Plan
Gen: NAD, AAOx3.
Eyes: EOMI, no scleral icterus.
Neck: supple.
CV: remains RRR, +S1/S2, no m/r/g.
Resp: remains CTAB, no rales, wheezes, or rhonchi.
Abd: +BS, soft, NT, ND
Skin: R groin and leg cellulitis
Neuro: CN 2-12 intact, non-focal.
Psych: Normal mood and affect.
12/28/24 21:16 Blood/Venous Blood Culture - Preliminary
No Growth in 48 hours- Final report to follow
12/28/24 20:21 Blood/Venous Blood Culture - Preliminary
No Growth in 48 hours- Final report to follow
12/29/24 12:41 Nose MRSA Screen - Final
No Methicillin Resistant Staphylococcus aureus isolated.
12/28/24 20:21 Blood/Venous Blood Parasites Smear - Final
CT A/P: Several subcentimeter enhancing right groin lymph nodes with surrounding stranding suggesting recent infection, procedure or malignancy in or near this region. Clinical and laboratory correlation recommended.. Too small for PET imaging.
Mild prostate hypertrophy. Bilateral simple renal cysts.
CT RLE: Subcentimeter right groin enhancing lymph nodes with associated inflammation suggesting recent procedure, infection or malignancy. Clinical and laboratory correlation recommended.
MRI T/L spine: No MR evidence for thoracolumbar spine infection.
Sepsis due to RLE cellulitis (POA):
-leukocytosis has resolved
-IV Vanco/Zosyn given in ER
-cont Ancef only (now off Vanco) as per ID --> Transition to cephalexin 500 mg p.o. QID, to continue for an additional 7 days.
-blood parasite smear NEG
-follow BCxs (NGTD)
-MRI T/L spine NEG
-Continue with lower extremity elevation and Ford wrap.
Other problems:
Alcohol abuse disorder: MSAS protocol (thiamine/folate/Ativan PRN)
Tobacco abuse disorder: Encourage smoking cessation
Obesity due to excess calories
FULL/heparin
More than 30 minutes spent in discharge including
Final examination of the patient
Summarizing hospital stay
Instructions for continuing care to all relevant caregivers
Preparation of discharge records, prescriptions, and referral forms
Total time spent (in minutes): 35
Anticipated Discharge: Today
Subjective/Interval History
-
Date of Service: January 01, 2025
Patient was seen and examined. He denied any symptoms or complaints, he said that his cellulitis has improved.
Objective Data
-
Labs:
Laboratory Results
01/01/25
05:59
WBC 6.8
Hgb 14.0
Hct 41.4
Plt Count 175 D
Sodium 137
Potassium 4.3
Chloride 108 H
Carbon Dioxide 25
BUN 9
Creatinine 0.8
Glucose 105 H
Calcium 9.2
Total Bilirubin 0.5
AST 24
ALT 25
Alkaline Phosphatase 31 L
Vital Signs:
Vital Signs
Temp Pulse Resp BP Pulse Ox
97.5 F 50 18 113/71 98
01/01/25 07:13 01/01/25 07:13 01/01/25 07:13 01/01/25 07:13 01/01/25 07:13
I&O
12/31/24 01/01/25 01/02/25
06:59 06:59 06:59
Intake Total 2500 / 2500 1440 / 1440
Balance 2500 / 2500 1440 / 1440
--- NOTE | 2025-01-01 10:42 | W.PN.ID1 ---
Date of Service
Date of Service: January 01, 2025
Today's Communication
Transition to oral Keflex 500 mg po QID x 7 days
Assessment / Plan
Right lower extremity cellulitis; suspect either Staphylococcus or Streptococcus
Lymphangitis
Suspected reactive right inguinal lymph nodes.
Leukocytosis
Fevers
Recommendations:
Improvement in leukocytosis and temperature curve noted.
Transition to cephalexin 500 mg p.o. QID, to continue for an additional 7 days.
Continue with lower extremity elevation and Ford wrap.
����������������������������������������������������������
Chief Complaint
-: Cellulitis (RLE)
Subjective / Review of Systems
Patient seen and examined. Reports some decrease in right lower extremity discomfort. Notes less redness of both the proximal medial thigh, and the right lower extremity.
Review of Systems: No Fever and No Chills
Vital Signs / Physical Exam
Vital Signs
Vital Signs
Temp Pulse Resp BP Pulse Ox
97.5 F 50 18 113/71 98
01/01/25 07:13 01/01/25 07:13 01/01/25 07:13 01/01/25 07:13 01/01/25 07:13
Physical Exam
Constitutional: No Acute Distress, Comfortable and Non-toxic
Eyes: Sclera Anicteric
Pulmonary: Non Labored
Extremities: Edema (Right lower extremity; improved), Erythema (Right lower extremity; improved) and Other (Diminished right lower extremity tenderness and warmth.)
Skin: Warm and Dry
Neurological: Awake and Alert
Psychological: Calm
Objective Data
Lab Data
Lab Results
01/01/25 05:59
01/01/25 05:59
PT 15.1 Sec (11.4-14.6) H 12/28/24 20:21
INR 1.14 12/28/24 20:21
APTT 34.8 Sec (23.4-35.0) 12/28/24 20:21
Estimated Creat Clear > 125 ml/min 01/01/25 05:59
Lactic Acid 0.9 mmol/L (0.7-2.0) 12/28/24 11:20
Total Bilirubin 0.5 mg/dl (0.2-1.3) 01/01/25 05:59
GGT 29 U/L (15-73) 12/28/24 20:21
AST 24 U/L (17-59) 01/01/25 05:59
ALT 25 U/L (0-50) 01/01/25 05:59
Alkaline Phosphatase 31 U/L (38-126) L 01/01/25 05:59
Most recent labs reviewed.
Micro Results:
12/28/24 21:16 Blood Culture - Preliminary
Blood/Venous No Growth in 72 hours- Final report to follow
12/28/24 20:21 Blood Culture - Preliminary
Blood/Venous No Growth in 72 hours- Final report to follow
12/29/24 12:41 MRSA Screen - Final
Nose No Methicillin Resistant Staphylococcus aureus isolated.
12/28/24 20:21 Blood Parasites Smear - Final
Blood/Venous
Imaging:
12/28/2024 CT lower extremity with IV contrast: subcentimeter right groin enhancing lymph nodes with associated inflammation suggesting recent procedure, infection or malignancy. No abnormal masses or fluid collections noted. Vasculature is grossly
unremarkable. Please see full dictation for additional detail.
04/30/2025 CT abdomen/pelvis with contrast: several subcentimeter enhancing right groin lymph nodes with surrounding stranding suggesting recent infection, procedure malignancy. Clinical correlation recommended. Mild prostate hypertrophy.
Bilateral simple renal cysts needed. Please see full dictation for additional detail.
Care Review
Plan reviewed with: Physician (Hospitalist)
[2025-01-01] MEDS: KEFLEX 500 MG PO (12:39)
[2025-01-01 13:36] LABS: Lyme Antibody Screen, EIA Negative (Negative)
[2025-01-01 14:58] VITALS: BP 115/84
--- NOTE | 2025-01-01 15:54 | W.DCSUMMARY ---
Discharge Summary
Discharge Data
Date of Admission: 12/28/24
Date of Discharge: 01/01/25
Total time spent discharging patient (in min): 35
-
Pending Results: No
Hospital Course
44-year-old male without significant medical history presented with 1 day of severe body aches including lower right back and right groin with radiation to the legs, chills, retro-orbital headache behind the right eye with some light sensitivity and
nausea, as well as discomfort of the right lower leg with red discoloration. Labs showed leukocytosis 23. CT scan of the right lower extremity and CT abdomen pelvis shows right groin enhancing lymph nodes. There was concern for Lyme's disease versus
other tickborne illness although right lower extremity cellulitis could cause enhancing lymph nodes in the right groin. Patient was seen by surgery for concern for necrotizing fasciitis but surgery mentioned that based on physical examination and CT
imaging there did not appear to be any deep/underlying soft tissue infection such as myositis, necrotizing fasciitis or un-drained abscess. Infectious diseases was consulted and their impression was that patient had reactive right inguinal lymph
nodes. Blood parasite smear was negative. Patient's Anaplasma and Ehrlichia PCR studies were negative; patient's Lyme serologies were negative. MRI thoracic/lumbar spine did not show an infectious process. Patient improved on intravenous antibiotics
and stable for discharge.
Discharge Plan
-
Patient Disposition: Home (Routine Discharge)
Discharge Diagnosis/Procedures: Right lower extremity cellulitis; suspect either Staphylococcus or Streptococcus
Lymphangitis
Suspected reactive right inguinal lymph nodes
Several sub-centimeter enhancing right groin lymph nodes with surrounding stranding suggesting recent infection, procedure or malignancy in or near this region -- on CT Imaging
Leukocytosis
Fevers
Alcohol abuse disorder
Tobacco abuse disorder
Obesity due to excess calories
Mild prostate hypertrophy on CT Imaging
Bilateral simple renal cysts on CT Imaging
Condition: Good
Diet: Regular
Activity: As tolerated
Activity Restrictions/Additional Instructions:
Continue with lower extremity elevation and NITIN wrap of your right lower extremity.
Referrals:
Ashish Franklin DO [Family Provider, Family Practice] - in less than 1 week
Prescriptions:
New
folic acid 1 mg Tablet
1 mg PO DAILY Qty: 20 0RF
cephalexin 500 mg Capsule
500 mg PO QID 7 Days Qty: 28 0RF
thiamine mononitrate (vit B1) 100 mg Tablet
100 mg PO DAILY Qty: 30 0RF
Discharge Orders:
Discharge Patient (As Directed); Ordered 01/01/25
Ordered By: Yaw Hanson
Discharge Date and Time
Discharge Date/Time: 01/01/25 17:02
Print Language: BELARUSIAN
--- NOTE | 2025-01-01 16:28 | CM ---
Patient has been medically cleared for discharge to home with no additional skilled services. Patient has arranged for transport home.
== END 2025-01-01 17:02 | disposition home or self-care (01) | DRG 872 ==
LOC: 3 WEST ACU 15:47
PROVIDERS: Clinical Nurse Specialist Family Health; ADMITTING PHYSICIAN Hospitalist; ATTENDING PHYSICIAN Hospitalist; EMERGENCY PHYSICIAN Emergency Medicine; FAMILY PHYSICIAN Family Medicine; OTHER PHYSICIAN Surgery
DX: A41.9 Sepsis, unspecified organism (principal); L03.115 Cellulitis of right lower limb; F17.210 Nicotine dependence, cigarettes, uncomplicated; F10.10 Alcohol abuse, uncomplicated; E66.09 Other obesity due to excess calories; Z68.30 Body mass index [BMI] 30.0-30.9, adult; D72.829 Elevated white blood cell count, unspecified; N40.0 Benign prostatic hyperplasia without lower urinary tract symptoms; N28.1 Cyst of kidney, acquired
CPT/HCPCS: 72157; 72158; 73701; 74177; 80053; 80306; 80307; 81003; 81015; 82010; 82077; 82550; 82977; 83605; 83735; 84100; 85025; 85610; 85730; 86618; 87015; 87040; 87070; 87207; 87468; 87484; 87798; 96361; 96365; 96366; 96367; 96375; 97162; 99284; 99406; A9575; Q9967